=== PATIENT | female | born 1980 | race Caucasian/White ===

== ENCOUNTER 2020-01-15 10:48 | Day surgery (SDC) | payer OTHER, SELFPAY ==
[2020-01-10 14:31] LABS: Hemoglobin 14.4 g/dL (12.0-15.0); Mean Corp Hgb Conc 32.7 g/dL (32-36); Mean Corpuscular Hgb 29.2 pg (27.0-32.0); Mean Corpuscular Volume 89.2 fL (81-99); Mean Platelet Vol. 8.8 fl (6.2-12.0); Platelet Count 444 K/mm3 (150-450); RBC Distribution Width CV 12.2 % (11.6-14.6); RBC Distribution Width SD 40.2 fl (35.1-43.9); Red Blood Count 4.93 M/mm3 (4.2-5.4)
[2020-01-10 14:41] LABS: International Normalized Ratio 0.9; Prothrombin Time (Protime)PT. 12.1 SECONDS (11.7-14.9)
[2020-01-10 14:42] LABS: Partial Thromboplast Time 26.7 Seconds (24.1-36.2)
[2020-01-10 14:49] LABS: Internal QC Validated? YES +Cl - CLEAR BKGD; Pregnancy, Serum, hCG Quali. NEGATIVE Negative
[2020-01-10 15:03] LABS: Estradiol 195.8 pg/mL; Thyroid Stim Hormone (TSH) 1.82 uIU/mL (0.358-3.74)
[2020-01-10 15:06] LABS: Progesterone Level 0.96 ng/mL (See Comment)
--- NOTE | 2020-01-12 14:43 | PCM.HP.BLA ---
History and Physical Date of Admission: 01/15/20 Surgical History and Physical Moriah Otero, a 39 year old female , presents for H/S, D and C on January 15, 2020 at 12:15. -- Endometrial Polyp; Irregular Menses -- TVUS at the end of her cycle to evaluate the uterus, the endometrial thickness, ovaries and look for fibroids showed EM Polyp. She thinks much of her pain and bloating issues can be related to fibroids. MEDICATIONS HISTORY: Patient is also takin. Daypro 600 mg tablet, One pill by mouth twice a day 2. lorazepam 0.5 mg tablet, prn 3. sertraline 100 mg tablet, 1 tab po daily 4. Vyvanse 70 mg capsule, One pill by mouth once a day ALLERGIES: No Known Drug Allergies Infections - denies Illnesses - denies Accidents - denies Hospitalizations - denies Review of Systems: GENERAL - Denies fever, or chills SKIN - Denies skin changes EYES - Denies visual changes EARS - Denies difficulty hearing NOSE - Denies nasal congestion or bleeding MOUTH - Denies sore throat or difficulty swallowing NECK - Denies pain or swelling RESPIRATORY - Denies shortness of breath or wheezing CARDIOVASCULAR - Denies palpitations or chest pain GASTROINTESTINAL - Denies nausea, vomiting, diarrhea, constipation GENITOURINARY - Denies dysuria, frequency of urination, incontinence of urine MUSCULOSKELETAL - Denies joint or muscle pain NEUROLOGICAL - Denies localized numbness or weakness PSYCHIATRIC - Denies depression or anxiety ENDOCRINE - Denies heat or cold intolerance, weight loss or gain HEMATO-IMMUNOLOGIC - Denies excesive bleeding with cuts SOCIAL HISTORY: Alcohol Use - RARELY Smoking - used to smoke but quit Seat Belt Use - always 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 01/14/2012 ; - breech twins 2. Appendectomy 3. nasal construction PHYSICAL EXAM BP- 114/82 Sitting, Right arm, regular cuff Weight- 170.27968 lbs Height- 65.75 inch BMI:27.77 CONSTITUTIONAL - NAD, well nourished, and well developed SKIN - No rash, lesions, or ulcers HEENT - Normocephalic, PERRLA, EOMI NECK - No nodes, no nuchal rigidity and thyroid normal size and texture LYMPH NODES - Palpation of lymph nodes in neck and groins within normal limits LUNGS - CTA x2 without wheezes, crackles or rales CARDIAC - Regular rate and rhythm without rubs, murmurs, or gallops BREAST - No dominant masses, no tenderness, no axillary adenopathy, no nipple discharge, no skin changes ABDOMEN - Without hepatosplenomegaly, distention, masses, rebound, or guarding; normal bowel sounds; no hernias EXTREMITIES - No edema or calf tenderness NEUROLOGICAL - Cranial nerves II-XII grossly intact PSYCHIATRIC - A and O to time, place, person, mood and affect ASSESSMENT/PLAN: 1. Abnormal Uterine And Vaginal Bleeding, Endometrial Polyp Plan Dx H/S and D and C. Discussed RBAs and all questions answered. Procedure Criteria Procedure Type: Elective COVID Risk Discussion: The surgeon/proceduralist and patient have discussed in detail the risk of exposure to and/or potential harm posed by the COVID-19 virus with having a surgery/procedure at this time versus the risk of delaying the surgery/procedure. It is not possible to know either the risk of delaying the surgery or procedure or chance of getting an infection with perfect accuracy, but a joint decision was made between the patient and the surgeon/proceduralist to proceed at this time with the scheduled surgery/procedure as indicated on the consent form.
[2020-01-15] VITALS (15 sets, daily range): BP systolic 65–140; BP diastolic 40–67; PULSE 62–78; RESP 16–18; TEMP 36.2–36.9; O2SAT 4–100; BMI 26.5
[2020-01-15 11:21] LABS: Internal QC Validated? YES +Cl - CLEAR BKGD; Pregnancy, Urine Negative Negative
[2020-01-15] MEDS: Lactated Ringers 1,000 ML 100 ML IV ×2 (11:24→13:53)
--- NOTE | 2020-01-15 12:20 | EMB_PTH ---
PATIENT: HAMILTON NEVAREZ LOC: [facility] [place] U#:[id number] AGE/SX: 39/F ROOM: RE01/15/[address]: Dr. Jamaal Jordan MD : 1980 BED: DIS: 01/15/2020 SPEC #: [id number] RECD: 01/15/20 15:17 STATUS: THEA TOVARYuri #: [id number] SINTIA: 01/15/20 12:[address]: Jamaal Jordan DEPT: SURGICAL PATHOLOGY RECD BY: Helena Quijano ENTERED: 01/16/20 09:43 SP TYPE: ENDOM BX/C ADRIA DR: Anitha Duarte [facility] Yates Tissues: Endometrium, NOS Procedures: Surgery Specimen Level IV HEADER OPERATION: Hysteroscopy, D & C PRE-OP DIAGNOSIS: Abnormal uterine and vaginal bleeding; endometrial polyp TISSUE SUBMITTED: Endometrial curettings MICROSCOPIC DIAGNOSIS Endometrium, biopsy: Secretory endometrium. AM:karla 01/17/20 MICROSCOPIC DESCRIPTION Slides are reviewed. GROSS DESCRIPTION Received in fixative is one container labeled with the patient's name and designated endometrial curettings. The specimen consists of multiple irregular fragments of light hernandez soft tissue that in aggregate measure 5 x 3 x 2.2 cm. The specimen is totally submitted in two cassettes. / AM:karla 01/16/20 TC:4 CPT: 31585
--- NOTE | 2020-01-15 13:12 | PCM.OPRPT ---
Report of Operation Date of Procedure: 01/15/20 Pre-Operative Diagnosis: Endometrial Polyp, Irregular Cycles Post-Operative Diagnosis: Endometrial Polyp, Irregular Cycles Surgery/Procedure Performed:: Diagnostic Hysteroscopy, Dilation and Curettage Description of Surgical Findings:: 8 cm endometrial cavity with multiple small polyps visualized. No fibroids visualized. Type of Anesthesia:: MAC Anesthesiologist: Karsten Bush Specimen's removed: Endometrial curettings Estimated Blood Loss (mL): Minimal Fluids Replaced: Crystalloid Description of Procedure: Surgeon: Jamaal Jordan MD, FACOG Indications: This is a 39 year old patient who has the above diagnosis. The patient has been counseled regarding the risk and indications of this procedure including the possibility of bleeding, infection, and injury to surrounding structures such as bowel bladder. All questions were answered and we consider the patient well-informed. Procedure: The patient was taken to the operating room where after induction of IV sedation, she was placed in the dorsolithotomy position and prepped and draped in the usual sterile fashion. Anterior cervix was grasped with the tenaculum and dilated to about 4-5 mm. A 3 mm hysteroscope was placed in the uterus of the above findings were noted. Cervix was dilated to about 7-8 mm and uterus was gently curetted removing all contents. Hysteroscope was reinserted and all material was noted to be removed. In the course of the procedure approximately 50 cc of saline distending media was used and virtually all of this was recovered. Patient tolerated procedure well was taken to recovery room in satisfactory condition sponge instrument and needle counts were all reportedly correct. Grafts/Implants Used: None - Complications None - Admit VTE Documentation VTE Present on Admission: Yes VTE Mechan Device Prophylaxis: SCD's
--- NOTE | 2020-01-15 13:17 | DCINST_ITS ---
Discharge Diet: No Restrictions Discharge Activity: Return to Normal Activity, May Shower, May Take a Tub Bath May resume sexual activity in: 1-2 weeks Call your doctor if you observe: Fever of 101 or Higher, Inability to urinate, Inability to have a bowel movement, Using more than one pad per hour Allergies/Adverse Reactions: Allergies No Known Allergies Allergy (Verified 01/15/20 11:02) Medications to take at Discharge Lisdexamfetamine Dimesylate [Vyvanse] 70 mg PO DAILY 01/08/20 Lorazepam 0.5 mg PO PRN PRN 01/08/20 Oxaprozin [Daypro] 600 mg PO DAILY 01/08/20 Sertraline HCl [Zoloft] 100 mg PO DAILY 01/08/20 Primary Care Physician: Rere Larson NP-C [Primary Care Provider] - Test Results: Test results from this visit will be discussed in further detail at your follow- up appointment, if applicable. Please Follow Up With: Jamaal Jordan MD When: 2 to 3 weeks
--- NOTE | 2020-01-15 13:39 | SUR.PHASEI ---
AT 13:25, BP = 77/41. HOB PLACED FLAT. IV LR @ WIDE OPEN. RANDY WHEATLEY CRNA AT BEDSIDE. PATIENT IS AROUSABLE.
[2020-01-15] MEDS: Ketorolac 30 MG/ML Syringe IV (14:49)
[2020-01-15] MEDS: oxyCODONE 5 MG Tablet PO (15:29)
== END 2020-01-15 15:58 | disposition home or self-care (01) ==
LOC: SDC 10:52 → AC 10:52
PROVIDERS: Anesthesiology; PCP Nurse Practitioner Family; Referring Provider Obstetrics & Gynecology; Visit Provider Obstetrics & Gynecology
PROC: 0UDB8ZZ Extraction of Endometrium, Via Natural or Artificial Opening Endoscopic (ICD-10-PCS; CPT 58558; principal; 2020-01-15 12:10)
DX: N84.0 Polyp of corpus uteri (principal); Z11.59 Encounter for screening for other viral diseases; F41.9 Anxiety disorder, unspecified; F32.9 Major depressive disorder, single episode, unspecified; M06.9 Rheumatoid arthritis, unspecified; Z79.899 Other long term (current) drug therapy; Z87.891 Personal history of nicotine dependence
CPT/HCPCS: 00952; 58558; 36415; 81025; 82670; 84144; 84443; 84703; 85027; 85610; 85730; 86850; 86900; 86901; 87635; 88305; G2023; J7120; J2405; U0003

== ENCOUNTER → 2021-01-09 11:13 | Outpatient (CLI) | payer OTHER, MEDICAID, SELFPAY ==
[2020-01-15 11:18] VITALS: BMI 26.5
[2021-01-09 14:17] LABS: HIV - WCH Non-Reactive (Nonreactive); Hepatitis B Surface Antibody Non-Reactive; Hepatitis B Surface Antigen Non-Reactive (Nonreactive); Hepatitis C Antibody Non-Reactive (Nonreactive); Rubella IgG Reactive (Nonreactive); Syphilis Antibodies Non-reactive
[2021-01-13 04:06] LABS: Chlamydia By Nucleic Acid AMP Negative (Negative)
[2021-01-16 15:02] LABS: Gonococcus By Nucleic Acid AMP Negative (Negative)
== END ==
PROVIDERS: PCP Nurse Practitioner Family; Visit Provider Student in an Organized Health Care Education/Training Program
DX: Z12.4 Encounter for screening for malignant neoplasm of cervix (principal); Z11.3 Encounter for screening for infections with a predominantly sexual mode of transmission
CPT/HCPCS: 36415; 86703; 86706; 86762; 86780; 86803; 87340; 87491; 87591; 87624; 88175; G0145

== ENCOUNTER 2024-05-11 08:15 | Day surgery (SDC) | payer MEDICAID, SELFPAY ==
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
[2024-05-11] VITALS (8 sets, daily range): BP systolic 92–109; BP diastolic 55–65; PULSE 71–80; RESP 14–18; TEMP 36.4–37; O2SAT 96–100; BMI 25.9
--- NOTE | 2024-05-11 08:34 | PRE.ANES_ITS ---
ASA Classification* ASA Classification ASA Classification: 2 Assessment & Plan Anesthesia* Anesthesia Assessment Anesthesia Assessment: Discussed sedation and/or anesthesia options, risks, benefits, and alternatives with patient/parents/legal guardian/POA. Questions invited. The patient/parents/legal guardian/POA seems to understand and agrees to proceed with anesthesia plan. Reviewed the physical assessment, medical history, allergy history and patient home medications list prior to surgery/procedure/anesthetic and documented any changes. Performed airway and anesthesia risk assessments. Anesthesia Type Anesthesia Type: MAC Anesthesia Focused Assessment* Airway Assessment Mouth opens: >3 cm Mallampati Score: II Focused Labs Anesthesia Preop lab: CBC WBC 9.0 K/mm3 (4.4-11.0) 01/10/20 13:44 RBC 4.93 M/mm3 (4.2-5.4) 01/10/20 13:44 Hgb 14.4 g/dL (12.0-15.0) 01/10/20 13:44 Hct 44.0 % (37-47) 01/10/20 13:44 Plt Count 444 K/mm3 (150-450) 01/10/20 13:44 CHEMISTRY Potassium 3.9 mmol/L (3.5-5.1) 02/24/16 16:00 Sodium 136 mmol/L (136-145) 02/24/16 16:00 BUN 12 mg/dL (7-18) 02/24/16 16:00 Creatinine 0.71 mg/dL (0.55-1.20) 02/24/16 16:00 Glucose 86 mg/dL (70-110) 02/24/16 16:00 TSH 1.82 uIU/mL (0.358-3.74) 01/10/20 13:44 COAG PT 12.1 SECONDS (11.7-14.9) 01/10/20 13:44 Urine Test Negative Negative 01/15/20 11:00 Pre-Assessment Diagnosis/Proposed Procedure Planned Operative Procedure(s): SUCTION D&C Anesthesia History Anesthesia History - staple side laster: Anesthesia History - staple side laster Hx Hospitalization No 05/09/24 12:30 Any Problems With Anesthesia No 05/09/24 12:30 Cholinesterase deficiency No 05/09/24 12:30 You/Your Family Experience No 05/09/24 12:30 fever (hyperthermia) with Relationship Recent Exposure to Contagious No 01/08/20 08:14 Disease Does patient have nerve No 05/09/24 12:30 stimulator Patient instructed to have device shut off --Does patient have Pacemaker or ICD? When Was Last Pacemaker Check QUESTION #4 FULL TEXT: You/Your Family Experience fever (hyperthermia) with Anesthesia Last Oral Intake Last Oral intake: Last Oral Intake NPO since Meds taken in AM with sips of water? Meds patient instructed to take am of surgery PONV PONV - staple side laster: PONV - staple side laster Female Yes 05/09/24 12:30 HX of Motion Sickness Yes 05/09/24 12:30 HX of N/V After Surgery Yes 05/09/24 12:30 Non-Smoker No 05/09/24 12:30 Duration of Surgery greater No 05/09/24 12:30 than 60 minutes Number of Risk Factors 3 05/09/24 12:30 PONV Score Moderate Risk 05/09/24 12:30 Respiratory Assessment Respiratory Assessment - staple side laster: Respiratory Tract Infection Hx - staple side laster Hx Respiratory Tract Infection No 05/09/24 12:30 STOP Sleep Apnea STOP Sleep Apnea - staple side laster: STOP Sleep Apnea - staple side laster Hx Hypertension No 05/09/24 12:30 Hx Sleep Apnea No 05/09/24 12:30 CPAP BIPAP Do you snore loudly (louder No 05/09/24 12:30 than talking or can be heard Do you often feel tired/ No 05/09/24 12:30 fatigued/ sleepy during daytime? Has anyone observed you stop No 05/09/24 12:30 breathing during sleep? STOP Results Negative 05/09/24 12:30 QUESTION #5 FULL TEXT : Do you snore loudly (louder than talking or can be heard through closed doors)? Tobacco Use History Tobacco Use History - staple side laster: Tobacco Use History - staple side laster Tobacco Use Smoking Status Current every day smoker 05/09/24 12:30 Hx Tobacco Use Yes 05/09/24 12:30 Years Smoking Packs Smoked per Day Smoking Cessation Date was within the last 15 years Hx Smoking Cessation Date Hx Smoking Cessation Counseling Hematologic Medial History Hematologic Hx - staple side laster: Hematologic Medical Hx - [facility] Hx of Blood Transfusion No 05/09/24 12:30 Hx of Transfusion in last 3 No 05/09/24 12:30 Months Date of Last Transfusion (if within last 3 months) Ever experience any problems No 05/09/24 12:30 with transfusion(s)? Specify any problems Hx of Preganancy in last 3 No 05/09/24 12:30 Months Nurse Filling Out Transfusion VCHRISTIN 05/09/24 12:30 & Questions: Date: 05/09/24 05/09/24 12:30 Time: 12:31 05/09/24 12:30 Patient unable to answer at this time (ie. confused, unrespo /Reproduction History /Reproductive History - staple side laster: /Reproductive Hx- staple side laster Hx Now Yes 05/09/24 12:30 Gestational Age (in weeks): EDC: Hx Hx Para Hx Section SAB No 05/09/24 12:30 Active Medications Active Medications: Current Medications Generic Name Dose Route Start Last Admin Trade Name Freq PRN Reason Stop Dose Admin Acetaminophen 1,000 mg 05/11/24 09:35 Acetaminophen 500 Mg Tablet PO 05/11/24 09:36 PREOP ONE Doxycycline Monohydrate 200 mg 05/11/24 09:35 Doxycycline 100 Mg Capsule PO 05/11/24 09:36 PREOP ONE Ketorolac Tromethamine 30 mg 05/11/24 09:35 Ketorolac 30 Mg/Ml Syringe IV 05/11/24 09:36 PREOP ONE [facility] Medical History Wears glasses Wears contact lenses Anxiety History of steroid therapy Rheumatoid arthritis Anemia Injury of head and neck Smoker History of Holter monitoring History of irregular heartbeat Hx of reduction of nasal fracture Home Medications ?Medication ?Instructions ?Recorded ?Last Taken ?Type lisdexamfetamine 50 mg capsule 50 mg PO DAILY 05/09/24 Unknown History (Vyvanse) vitamin with calcium 1 tab PO DAILY 05/09/24 Unknown History no.72-iron 27 mg-folic acid 1 mg tablet ( Vitamins Plus Low Iron) Allergy/AdvReac Type Severity Reaction Status Date / Time No Known Allergies Allergy Verified 05/09/24 12:19 Surgical History Hx of dilation and curettage Hx of hand surgery Hx of section Hx of appendectomy Social History Smoking Status: Current every day smoker tobacco type: cigarettes and e-cigarettes Review of Systems (Anesthesia) ROS Narrative System reviewed and no additional complaints, except as documented.
[2024-05-11] MEDS: Ketorolac 30 MG/ML Syringe IV (09:09)
[2024-05-11] MEDS: Acetaminophen 500 MG Tablet 1000 MG PO (09:16)
[2024-05-11] MEDS: Doxycycline 100 MG CAPSULE 200 MG PO (09:16)
--- NOTE | 2024-05-11 09:35 | POC_PTH ---
PATHOLOGY RESULTS PATIENT: HAMILTON NEVAREZ [place] [facility] [place][id number] AGE/SX: 43/F ROOM: RE05/11/[address]: Dr. Raquel Sarah MD : 1980 BED: DIS: 05/11/2024 SPEC #: [id number] RECD: 05/11/24 10:42 STATUS: THEA LEONG #: [id number] SINTIA: 05/11/24 09:[address]: Raquel Sarah DEPT: SURGICAL PATHOLOGY RECD BY: Helena Quijano ENTERED: 05/11/24 11:43 SP TYPE: PROD CONC Tissues: Product of conception, NOS Procedures: Surgery Specimen Level IV HEADER OPERATION: Dilation and curettage, suction PRE-OP DIAGNOSIS: Missed , 8 weeks gestation of TISSUE SUBMITTED: Products of conception MICROSCOPIC DIAGNOSIS Endometrium, curettage: Chorionic villi, decidualized stroma and trophoblastic cells (products of conception). AM: 05/12/2024 MICROSCOPIC DESCRIPTION Slides are reviewed. GROSS DESCRIPTION Received in fixative is one container labeled with the patient's name and designated Products of conception. The specimen consists of multiple fragments of hemorrhagic soft tissue measuring in aggregate 3.0 x 2.0 x 0.5cm. No tissue is identified. The entire specimen is submitted in two cassettes. 05/11/2024 TC:5 CPT:97859
[2024-05-11 09:57] LABS: hCG Titer Quant., Serum 22 mIU/mL (1-3)
[2024-05-11] MEDS: Lidocaine 1% /Epi 1:100 (20ml) 20 ML Vial (10:02)
--- NOTE | 2024-05-11 10:08 | OP.PCM_ITS ---
Problems Associated Problem List Diagnoses (1) Incomplete : (2) 8 weeks gestation of : Operative Report (Standard) Operative Information Surgery/Procedure Performed: Suction D&C Surgeon: Raquel Sarah Date of Procedure: 05/11/24 Procedure Start Time: 10:01 Procedure Stop Time: 10:07 Pre-Operative Diagnosis: incomplete spontaneous , 8 weeks gestation Post-Operative Diagnosis: same Select all DRAINS/GRAFTS/IMPLANTS that apply: None Type of Anesthesia: MAC/Supplemental/Local Special Medications: none Estimated Blood Loss: 10 Fluids Replaced: 0 Specimen collected: Yes Description of specimen(s) removed: products of conception Description of surgery: The patient was taken to the operating room where she was prepped and draped in a dorsolithotomy position. The uterus was 8 weeks size and anteverted.. A weighted speculum was placed in the vagina and the anterior lip of the cervix was grasped with a single-tooth tenaculum. The cervix was dilated serially. A 8 mm suction curette was placed to the uterine fundus and the suction was created. Several passes were made to remove clots and products of conception. When minimal tissue was returning a gentle sharp curettage was then done of the uterine cavity. The uterine cry was appreciated and another gentle pass was made with the suction curette. A brief ultrasound confirmed a bright white endometrial stripe that was approximately 6 mm. No retained products of conception or clots were noted. At this point there is no active bleeding from the uterus and minimal blood and no further products of conception were removed. The instruments removed from the cervix and the cervix was observed and no active bleeding was identified. The tenaculum was removed off the cervix and hemostasis of the tenaculum site was assured. Made of the instruments removed from the vagina and the vaginal sweep was completed by me. Sponge and needle counts were correct. The patient was taken to the recovery room in stable condition. Findings: 8 week size uterus, normal cervix and vagina. Specimen: Products of conception Surgical Findings: normal cervix and vagina, products of conception Event Decorator And Designer sales management trainee: No Complications Complications: No Admit VTE Documentation VTE Present on Admission: No VTE Mechan Device Prophylaxis: SCD's VTE Pharm Prophylaxis ordered?: No
--- NOTE | 2024-05-11 10:13 | PCM.POST.ANE ---
Anesthesia: Postop Eval I Current Vital Signs Temperature: 97.5 F Pulse Rate: 80 Blood Pressure: 106/55 Respiratory Rate: 16 Pulse Ox: 97 Oxygen Delivery Method: Room Air Assessment Airway patent: Yes Spontaneous unlabored respirations: Yes Mental status: Awake and Calm nausea: No Vomiting: No Anesthesia Complication: No Fluid Hydration Crystalloid volume administer (ml): 10 Total IV fluid infused: 10 Progress Note Anesthesia document: Postop Eval 1 completed: Yes
--- NOTE | 2024-05-11 11:02 | DCINST_ITS ---
Discharge Instructions Diet Discharge Diet: No restrictions Activity Discharge Activity: May Drive (05/12/24) and May Take a Tub Bath (in 2 weeks) Return to work on:: 05/12/24 May shower in (days): 4 May resume sexual activity in: 1-2 weeks Lifting Restrictions: none Dressing / Incision Call your doctor if your incision/area has: Sudden Increased Bleeding and Foul Smelling Discharge Call your doctor if you observe: Fever of 101 or Higher and Using more than 1 pad per hour (for 2 hrs in a row) Follow Up Care Please Follow Up With: Raquel Sarah MD When: Follow up in the office in 2 weeks or as needed. Call [phone] or [employer] [facility] message to make an appointment or with any concerns. Test Results: Test results from this visit will be discussed in further detail at your follow-up appointment, if applicable. Discharge Plan Admission Primary Reason for Your Visit: Miscarriage- Suction D&C Attending Provider: Raquel Sarah Primary Care Provider: PAUL DUNCAN Instructions Print Language: Mongolian Discharge Orders/Prescriptions Prescriptions: New ibuprofen 600 mg tablet 600 mg PO Q6H PRN (Reason: Pain) 10 Days Qty: 30 1RF Continued lisdexamfetamine [Vyvanse] 50 mg capsule 50 mg PO DAILY Vitamin Plus Low Iron 27 mg iron- 1 mg tablet 1 tab PO DAILY Referrals / Follow Up: Rere Larson NP, VISITOR SERVICES REPRESENTATIVE-C [Non-Staff] - Disposition Disposition (needs filled in before D/C Order can be placed): Home, Self Care
--- NOTE | 2024-05-11 11:12 | POSTOPAN2_ITS ---
Anesthesia Postop Eval I Sum Postop Eval Completion status Anesthesia document: Postop Eval 1 completed: Yes Anesthesia Postop Eval I Summary Anesthesia Postop Eval I Summary: Anesthesia Postop Eval I: Assessment Summary Airway patent Yes 05/11/24 10:13 [email or web address] Spontaneous unlabored Yes 05/11/24 10:13 [email or web address] [email or web address] respirations Mental status Awake,Calm 05/11/24 10:13 [email or web address] [email or web address] nausea No 05/11/24 10:13 [email or web address] [email or web address] Vomiting No 05/11/24 10:13 [email or web address] Anesthesia Postop Eval I: Fluid Summary Crystalloid volume administer 10 05/11/24 10:13 [email or web address] (ml) Colloids volume administered ( ml) Blood Product volume administered (ml) Total IV fluid infused 10 05/11/24 10:13 [email or web address] [email or web address] Anesthesia Postop Eval I: Summary Notes Anesthesia Complication No 05/11/24 10:13 [email or web address] Anesthesia Complication Comment: Post-operative progress note Anesthesia: Postop Eval II Evaluation Mental status: Awake Pain Level: 0 nausea: No Vomiting: No
--- NOTE | 2024-05-11 11:12 | PCM.POSTANE2 ---
Anesthesia Postop Eval I Sum Postop Eval Completion status Anesthesia document: Postop Eval 1 completed: Yes Anesthesia Postop Eval I Summary Anesthesia Postop Eval I Summary: Anesthesia Postop Eval I: Assessment Summary Airway patent Yes 05/11/24 10:13 COMMERCIAL [email or web address] Spontaneous unlabored Yes 05/11/24 10:13 COMMERCIAL [email or web address] respirations Mental status Awake,Calm 05/11/24 10:13 COMMERCIAL [email or web address] nausea No 05/11/24 10:13 COMMERCIAL [email or web address] Vomiting No 05/11/24 10:13 COMMERCIAL [email or web address] Anesthesia Postop Eval I: Fluid Summary Crystalloid volume administer 10 05/11/24 10:13 COMMERCIAL [email or web address].[email or web address] (ml) Colloids volume administered ( ml) Blood Product volume administered (ml) Total IV fluid infused 10 05/11/24 10:13 COMMERCIAL INSULATOR.[email or web address] Anesthesia Postop Eval I: Summary Notes Anesthesia Complication No 05/11/24 10:13 COMMERCIAL [email or web address].[email or web address] Anesthesia Complication Comment: Post-operative progress note Anesthesia: Postop Eval II Evaluation Mental status: Awake Pain Level: 0 nausea: No Vomiting: No
== END 2024-05-11 11:40 | disposition home or self-care (01) ==
LOC: SDC 08:16 → AC 08:18
PROVIDERS: Referring Provider Obstetrics & Gynecology; Visit Provider Obstetrics & Gynecology
PROC: (CPT 59812; principal; 2024-05-11 09:20)
DX: O03.4 Incomplete spontaneous abortion without complication (principal); O99.331 Smoking (tobacco) complicating pregnancy, first trimester; F17.210 Nicotine dependence, cigarettes, uncomplicated; Z3A.08 8 weeks gestation of pregnancy
CPT/HCPCS: 59812; 01965; 84702; 88305; A4216; J2405